=== PATIENT | male | born 1955 | race Caucasian/White ===

== ENCOUNTER 2017-05-14 22:57 | Emergency (ER) | payer OTHER ==
[~2017-05-14] VITALS: Ht 180.3 cm; Wt 84.8 kg
[~2017-05-14 22:57] MED LIST: HYDROXYZINE50 MG PO; PREDNICOT20 MG PO
--- NOTE | 2017-05-15 00:17 | ED UPPER/LOWER EXTREMITY COMPL ---
History of Present Illness General Chief Complaint: Lower Extremity Problems Stated Complaint: "MY LEFT LEG PAIN BELOW KNEE" Source: patient Exam Limitations: no limitations Vital Signs & Intake/Output Vital Signs & Intake/Output Vital Signs Date Time Temp Pulse Resp B/P B/P Pulse O2 O2 Flow FiO2 Mean Ox Delivery Rate 05/15 0114 97.5 76 18 129/70 98 Room Air 05/14 2343 Room Air 05/14 2339 97.4 71 18 138/72 98 Room Air ED Intake and Output 05/15 0000 05/14 1200 Intake Total Output Total Balance Patient 187 lb Weight Weight Reported by Patient Measurement Method Allergies Coded Allergies: NO KNOWN ALLERGIES (09/02/16) Reconcile Medications Cyclobenzaprine HCl 10 MG TABLET 1 TAB PO QPM PRN MUSCLE STRAIN Hydroxyzine Hydrochloride (Hydroxyzine) 50 MG TAB 1 TAB PO Q8P PRN ITCHING Prednisone (Prednicot) 20 MG TAB 3 TAB PO DAILY CONTACT DERMATITIS Triage Note: PT FROM HOME C/O LLE DULL ACHING PAIN THAT BEGAN AROUND 2030. PT DENIES INA RECENT ACTICITY OR TRAUMA. PTS LT KNEE DOWN HAS NO REDNESS NO SWELLING, NOT WARM TO TOUCH. PT CALLED RN PUBLIC POLICY COORDINATOR THROUGH HIS INSURANCE AND THEY STATED HE COME IN TO GET IT LOOKED AT. PT STATES DULL CONSTANT ACHING PAIN IN LOWER EXTREMEITY. PT STATES AROUND 2100 HE TOOK 3 ADVIL WITH MINIMAL RELIEF. PT TO 3 AWAITING PROVIDER EVAL Triage Nurses Notes Reviewed? yes Onset: Gradual Duration: hour(s): Timing: single episode today Severity: moderate Severity Numbers: 7 Pain/Injury Location: Left: Leg. HPI: 61-year-old male with history of cervical isolated myelitis presents emergency department complaining of left lower extremity pain since the evening. Patient states that he was in his normal state of health when driving home he gradually felt increasing pain from just below his knee to his ankle. Pain described as dull pressure, 7/10. He has never had a pain of this nature in the past. Patient took 3 Advil at home and called a nurse through his insurance who told him he should see a medical professional today. He states while waiting to be seen here in the emergency room his pain has improved to 3/10 and is now intermittent in nature. He denies numbness, tingling, swelling, skin changes, trauma to the area, fall. He has not seen a neurologist for many years. (GALO PA-C,TATO JOSE RAUL) Past History Travel History Traveled to [place] past 21 day No Medical History Any Pertinent Medical History? see below for history Neurological: ISOLATED CERVIAL MYELITIS EENT: NONE Cardiovascular: NONE Respiratory: NONE Gastrointestinal: NONE Hepatic: NONE Renal: NONE Musculoskeletal: NONE Psychiatric: NONE Endocrine: NONE Influenza Vaccine: 07/19/10 Surgical History Surgical History: non-contributory Psychosocial History What is your primary language [place] Island[place] Tobacco Use: Never used ETOH Use: denies use Illicit Drug Use: denies illicit drug use Family History Hx Contributory? No (TATO ROSENTHAL PA-C) Review of Systems Review of Systems Constitutional: Reports: no symptoms. EENTM: Reports: no symptoms. Respiratory: Reports: no symptoms. Cardiovascular: Reports: no symptoms. Gastrointestinal/Abdominal: Reports: no symptoms. Genitourinary: Reports: no symptoms. Musculoskeletal: Reports: see HPI. Skin: Reports: no symptoms. Neurological/Psychological: Reports: no symptoms. Hematologic/Endocrine: Reports: no symptoms. Immunological: Reports: no symptoms. All Other Systems: Reviewed and Negative (TATO ROSENTHAL PA-C) Physical Exam Physical Exam General Appearance: well developed/nourished, no apparent distress, alert, awake Head: atraumatic, normal appearance Eyes: Bilateral: normal appearance. Ears, Nose, Throat: hearing grossly normal Neck: normal inspection, supple, full range of motion Peripheral Pulses: 2+ dorsalis pedis (R), 2+ dorsalis pedis (L) Back: normal inspection Leg Left: normal range of motion, normal inspection, tenderness, no swelling or evidence of injury, tenderness over lower leg and calf Leg Right: normal range of motion, normal inspection Neurologic/Tendon: normal sensation, normal motor functions, normal tendon functions, strength 5/5 equal bilaterally Skin: intact, normal color, warm/dry (TATO RSOENTHAL PA-C) Progress Differential Diagnosis: arterial insufficiency, cellulitis, compartment syndrome , contusion, fracture, sprain, muscle spasm, nerve intrapment Plan of Care: The patient was discussed with Dr. Barros. Pain is consistent with muscle spasm. Patient was given prescription for Flexeril, he was instructed to continue to take his Advil as prescribed as needed for his pain. The patient will follow up with his PCP to discuss today's visit. The patient is in no acute distress, well appearing, his pain is significantly improved since waiting in the ED. The patient is in agreement with the plan of care. He is able to ambulate exiting the ED. (GALO DAMON,TATO BLUNT) Departure Departure Disposition: HOME OR SELF CARE Condition: Stable Clinical Impression Primary Impression: Muscle strain Secondary Impressions: Pain of left calf Referrals: JEEVAN JENSEN,FRANK Guerrero (PCP/Family) Additional Instructions: Take Flexeril at night as needed for pain and muscle spasm. His medication may cause drowsiness, do not drive while taking this medication. He may continue to take Advil 800 mg 3 times daily as needed for pain. Inform your primary care doctor that you're seen and evaluated today, follow-up in your primary care doctor's office next. Return with any worsening symptoms or concerns including leg swelling, increasing pain, difficulty breathing. Please note that there might be incidental findings in your evaluation that are unrelated to the current emergency department visit. Please notify your primary care doctor about this emergency department visit in order to obtain and review all of the testing performed so that these incidental findings can be monitored as needed. If you're unable to follow up as outlined in the discharge instructions please return to the emergency department. Thank you for choosing the [facility] Emergency Department for your care. It was a pleasure to serve you today. Departure Forms: Customer Survey General Discharge Information Prescriptions: Current Visit Scripts Cyclobenzaprine HCl 1 TAB PO QPM PRN MUSCLE STRAIN #8 TAB (GALO DAMON,TATO BLUNT) PA/SALES EXEC Co-Sign Statement Statement: ED Attending supervision documentation- I saw and evaluated the patient. I have also reviewed all the pertinent lab results and diagnostic results. I agree with the findings and the plan of care as documented in the PA's/SALES EXEC's documentation. x I have reviewed the ED Record and agree with the PA's/SALES EXEC's documentation. [] Additions or exceptions (if any) to the PAs/SALES EXEC's note and plan are summarized below: [] (CHASE JENSEN,BRAEDEN)
[2017-05-15] MEDS ORDERED: CYCLOBENZAPRINE10 M1 PO (01:03)
[2017-05-15 01:14] VITALS: BP 129/70
== END 2017-05-15 01:15 ==
LOC: ERH 22:57
DX: S86.812A Strain of other muscle(s) and tendon(s) at lower leg level, left leg, initial encounter (principal); X58.XXXA Exposure to other specified factors, initial encounter; Y92.9 Unspecified place or not applicable; Y93.9 Activity, unspecified